=== PATIENT | male | born 1990 | race Hispanic/Latino ===

== ENCOUNTER 2020-01-17 09:52 | Emergency (ER) | payer SELFPAY ==
[~2020-01-17] VITALS: Ht 167.6 cm; Wt 88.5 kg
--- NOTE | 2020-01-17 10:14 | Emergency Department Note ---
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 His VSS at this time, no c/p no SOB no HUNTER, no toxic habit, construction superintendent. . Arrival Mode: Car History limited by: language barrier Drying Frame Operator Required: Yes Onset (how long ago): day(s) Severity: moderate Onset quality: gradual Duration (how long): day(s) (3) Progression: waxing and waning Chronicity: new Relieving factors: none Exacerbating factors: none Associated symptoms: Reports weakness Treatments prior to arrival: none Past Medical/Family History Physician Review I have reviewed the patient's past medical and family history. Any updates have been documented here. Past Medical History Recent Fever: No Past Medical History: None Past Surgical History: None Social History Smoking Cessation: Never Smoker Counseling Performed: No Alcohol Use: None Any Illegal Drug Use: No Family History Family history of heart diseas: No Review of Systems Review of Systems Constitutional: Reports as per HPI, Reports weakness EENTM: Reports no symptoms Cardiovascular: Reports no symptoms Respiratory: Reports no symptoms Gastrointestinal: Reports no symptoms Genitourinary: Reports no symptoms Musculoskeletal: Reports muscle pain Integumentary: Reports no symptoms Neurological: Reports no symptoms Psychological: Reports no symptoms Endocrine: Reports no symptoms Hematological/Lymphatic: Reports no symptoms Physical Exam Related Data Allergies: Coded Allergies: No Known Allergies (Unverified , 01/17/20) Vital signs reviewed: Yes (VS wnl) Physical Exam CONSTITUTIONAL Constitutional: Present well-developed, Present well-nourished HENT HENT: Present normocephalic, Present atraumatic, Present oropharynx clear/moist, Present nose normal HENT L/R: Present left ext ear normal, Present right ext ear normal EYES Eyes: Reports PERRL, Reports conjunctivae normal NECK Neck: Present ROM normal PULMONARY Pulmonary: Present effort normal, Present breath sounds normal CARDIOVASCULAR Cardiovascular: Present regular rhythm, Present heart sounds normal, Present capillary refill normal, Present normal rate GASTROINTESTINAL Abdominal: Present soft, Present nontender, Present bowel sounds normal GENITOURINARY Genitourinary: Present exam deferred SKIN Skin: Present warm, Present dry MUSCULOSKELETAL Musculoskeletal: Present ROM normal NEUROLOGICAL Neurological: Present alert, Present oriented x 3, Present no gross motor or sensory deficits PSYCHOLOGICAL Psychological: Present mood/affect normal, Present judgement normal Assessment & Plan Medical Decision Making MDM heat exhaustion Assessment & Plan Final Impression: (1) Heat exhaustion Depart Disposition: HOME, SELF-CARE Physician Attestation Provider Attestation pt is taking PO well, in NAD, doubt rhabdo. He can go home, few days off, drink fluid and rest. ABBY CASTELLON MD Jan 17, 2020 10:14
== END 2020-01-17 10:22 | disposition home or self-care (01) ==
LOC: FSED 10:15
DX: T67.5XXA Heat exhaustion, unspecified, initial encounter (principal); R42 Dizziness and giddiness; R53.1 Weakness
CPT/HCPCS: 81003; 99282